=== PATIENT | female | born 1945 | race African-American/Black ===

== ENCOUNTER 2017-08-26 01:23 | Inpatient (IN) | payer MEDICAID, MEDICARE ==
[~2017-08-26] VITALS: Ht 185.4 cm; Wt 90.3 kg
[2017-08-26 01:35] VITALS: Ht 185.4 cm; Wt 90.3 kg
[2017-08-26 03:12] LABS: BASOPHIL % 0.2 % (0-2); PLATELET COUNT 226 x10^3mcL (130-400); RED CELL DISTRIBUTION WIDTH 14.4 % (11.5-14.5)
[2017-08-26 04:01] LABS: ALBUMIN 3.5 g/dL (3.4-5.0); ALKALINE PHOSPHATASE 235 U/L (46-116); ALT/SGPT 135 U/L (14-59); AST/SGOT 87 U/L (15-37); BILIRUBIN TOTAL 0.69 mg/dL (0.20-1.00); CALCIUM 9.8 mg/dL (8.5-10.1); CARBON DIOXIDE 23.6 mmol/L (21-32); CHLORIDE SERUM 97 mmol/L (98-107); CREATININE SERUM 1.1 mg/dL (0.6-1.0); POTASSIUM SERUM 4.3 mmol/L (3.5-5.1); SODIUM SERUM 134 mmol/L (136-145)
[2017-08-26 04:11] LABS: GLUCOSE SERUM 537 mg/dL (74-106)
[2017-08-26 05:16] LABS: microscopic required? YES; urine erythrocyte TRACE (NEGATIVE)
[2017-08-26 05:35] LABS: rbc morphology (normal/abnorm) ABNORMAL (NORMAL)
[2017-08-26] MEDS ORDERED: FUROSEMIDE5 GM (06:18)
[2017-08-26] MEDS ORDERED: DIOVAN80 MG PO (06:18)
[2017-08-26] MEDS ORDERED: TOPROL XL25 MG PO (06:18)
[2017-08-26] MEDS ORDERED: HYDRALAZINE HCL25 MG PO (06:19)
[2017-08-26] MEDS ORDERED: ASPIR 8181 MG (06:19)
[2017-08-26] MEDS ORDERED: METFORMIN HYDR500 M1 (06:19)
[2017-08-26 08:40] VITALS: BP 139/76
[2017-08-26 08:42] LABS: FREE T4 1.38 ng/dL (0.76-1.46); FREE THYROXINE INDEX 3.5 ug/dL (1.4-4.5); MAGNESIUM 2.1 mg/dL (1.8-2.4); PHOSPHOROUS 2.3 mg/dL (2.5-4.9); T4(THYROXINE) 9.4 ug/dL (4.7-13.3)
[2017-08-26 09:31] LABS: T3 TOTAL 1.05 ng/mL
[2017-08-26 10:56] VITALS: BP 169/83
[2017-08-26 15:41] LABS: AMPHETAMINE QUAL UR NONE DETECTED (NEG <=1000)
[2017-08-26 16:54] VITALS: BP 117/50
[2017-08-26 21:33] VITALS: BP 139/62
[2017-08-27 06:13] LABS: BASOPHIL % 0.4 % (0-2); PLATELET COUNT 229 x10^3mcL (130-400)
[2017-08-27 06:29] VITALS: BP 145/58
[2017-08-27 06:57] LABS: CALCIUM 8.7 mg/dL (8.5-10.1); CARBON DIOXIDE 25.2 mmol/L (21-32); CHLORIDE SERUM 104 mmol/L (98-107); CREATININE SERUM 0.8 mg/dL (0.6-1.0); GLUCOSE SERUM 110 mg/dL (74-106); PHOSPHOROUS 4.6 mg/dL (2.5-4.9); POTASSIUM SERUM 4.2 mmol/L (3.5-5.1); SODIUM SERUM 140 mmol/L (136-145)
[2017-08-27 07:08] LABS: RED CELL DISTRIBUTION WIDTH 14.9 % (11.5-14.5)
[2017-08-27 08:39] VITALS: BP 138/88
[2017-08-27 13:48] VITALS: BP 127/68
[2017-08-27 17:50] VITALS: BP 149/65
[2017-08-27 21:37] VITALS: BP 147/66
[2017-08-28 04:48] VITALS: BP 150/72
[2017-08-28 06:52] LABS: BASOPHIL % 0.4 % (0-2); PLATELET COUNT 236 x10^3mcL (130-400)
[2017-08-28 07:08] LABS: RED CELL DISTRIBUTION WIDTH 14.6 % (11.5-14.5)
[2017-08-28 07:09] LABS: rbc morphology (normal/abnorm) ABNORMAL (NORMAL)
[2017-08-28 07:11] LABS: CALCIUM 8.5 mg/dL (8.5-10.1); CARBON DIOXIDE 25.3 mmol/L (21-32); CHLORIDE SERUM 105 mmol/L (98-107); CREATININE SERUM 0.7 mg/dL (0.6-1.0); GLUCOSE SERUM 206 mg/dL (74-106); POTASSIUM SERUM 4.8 mmol/L (3.5-5.1); SODIUM SERUM 139 mmol/L (136-145)
[2017-08-28 09:35] VITALS: BP 158/64
[2017-08-28 13:58] VITALS: BP 136/61
[2017-08-28] MEDS ORDERED: FLO4 PO (14:48)
[2017-08-28] MEDS ORDERED: CYCLOBENZAPRINE5 MG PO (14:49)
[2017-08-28] MEDS ORDERED: GLIPIZIDE2.5 M1 PO (15:42)
[2017-08-28] MEDS ORDERED: LEV500 PO (16:12)
[2017-08-28] MEDS ORDERED: LEVEMIR FLEX100 U/M1 SQ (16:36)
[2017-08-28 17:01] VITALS: BP 158/70
[2017-08-28] MEDS ORDERED: GABAPENTIN300 M4 PO (17:26)
== END 2017-08-28 19:00 | disposition home or self-care (01) | DRG 720 ==
LOC: ED 01:23 → DU 06:17
PROVIDERS: Emergency Medicine; Family Medicine
PROC: 0HBNXZZ Excision of Left Foot Skin, External Approach (ICD-10-PCS; principal; 2017-08-27)
PROC: 0HBMXZZ Excision of Right Foot Skin, External Approach (ICD-10-PCS; 2017-08-27)
DX: A41.9 Sepsis, unspecified organism (principal); E11.65 Type 2 diabetes mellitus with hyperglycemia; I50.9 Heart failure, unspecified; I11.0 Hypertensive heart disease with heart failure; E11.40 Type 2 diabetes mellitus with diabetic neuropathy, unspecified; E87.8 Other disorders of electrolyte and fluid balance, not elsewhere classified; J44.9 Chronic obstructive pulmonary disease, unspecified; R74.0 Nonspecific elevation of levels of transaminase and lactic acid dehydrogenase [LDH]; K56.41 Fecal impaction; M19.90 Unspecified osteoarthritis, unspecified site; N39.0 Urinary tract infection, site not specified; N13.2 Hydronephrosis with renal and ureteral calculous obstruction; M94.0 Chondrocostal junction syndrome [Tietze]; E83.39 Other disorders of phosphorus metabolism; E87.1 Hypo-osmolality and hyponatremia; D86.9 Sarcoidosis, unspecified; E66.9 Obesity, unspecified; D64.9 Anemia, unspecified; E78.5 Hyperlipidemia, unspecified; L84 Corns and callosities; Z88.8 Allergy status to other drugs, medicaments and biological substances; Z91.018 Allergy to other foods; Z95.0 Presence of cardiac pacemaker; Z79.82 Long term (current) use of aspirin; Z79.899 Other long term (current) drug therapy; Z79.84 Long term (current) use of oral hypoglycemic drugs; Z68.26 Body mass index [BMI] 26.0-26.9, adult; Z56.0 Unemployment, unspecified
CPT/HCPCS: 36600; 82962; 83880; 84439; 94150; J0696; J1815; J1885; J2270; J7030; J7620; Q0092